=== PATIENT | male | born 1950 | race Caucasian/White ===

== ENCOUNTER 2017-08-05 11:25 | Day surgery (SDC) | payer MEDICARE ==
[2017-08-05] MEDS ORDERED: ROSU1TAB8 PO (11:55)
[2017-08-05] MEDS ORDERED: ECASA81 PO (11:55)
[2017-08-05] MEDS ORDERED: MULTTAB67 PO (11:55)
[2017-08-05] MEDS ORDERED: TEST1INJ3 IM (11:55)
[2017-08-05] MEDS ORDERED: SERO50TA PO (11:55)
[2017-08-05] MEDS ORDERED: REME45TA PO (11:55)
[2017-08-05] MEDS ORDERED: IBUP1TAB7 PO (11:55)
[2017-08-05] MEDS ORDERED: OMEP40CA2 PO (11:55)
[2017-08-05] MEDS ORDERED: ZOLP5TAB3 PO (11:55)
[2017-08-05] MEDS ORDERED: TRAM50TA PO (11:55)
[2017-08-05] MEDS ORDERED: COQ-30CA2 PO (11:55)
[2017-08-05] MEDS ORDERED: NS 1000 ML IV SCH (12:15)
[2017-08-05] MEDS ORDERED: CHLORHEXIDINE GLUCONATE 2 % 1 PACK (2 CLOTHS) TOPICAL SCH (12:15)
[2017-08-05] MEDS ORDERED: POVIDONE IODINE 5% (ANTISEPSIS KIT) 4 APPLICATIONS EACH NARE SCH (12:15)
[2017-08-05] MEDS ORDERED: MUPIROCIN 2% OINT 1 APPLIC/GM SYR NASAL SCH (12:15)
[2017-08-05] MEDS ORDERED: ceFAZolin 2 GM PREMIX 50 ML IV SCH (12:15)
--- NOTE | 2017-08-05 13:33 | MA ---
cc: ELADIO MEANS MD DATE 08/05/2017 PROCEDURE PERFORMED Loop recorder insertion. PERFORMING PHYSICIAN Dr. Eladio Means INDICATION Tachycardia/syncope. DESCRIPTION OF PROCEDURE Informed consent was obtained. The patient was brought to the DOC unit in the postabsorptive state. Using the standard sterile technique, a [employer] LINQ loop recorder was inserted subcutaneously to left chest. The patient tolerated procedure well without any apparent complications. Tachybrady pause and atrial fibrillation detection was enabled. Initial R-wave was 0.25 mV. The serial number was [id number]. MD CARLOS Gaitan/JORGE /12:47 PM /1:19 PM
== END 2017-08-05 14:10 | disposition home or self-care (01) ==
LOC: HDOC 11:25 → HDIC 11:26 → HDOC 14:10
PROVIDERS: ATTEND Nuclear Medicine Nuclear Cardiology
DX: R55 Syncope and collapse (principal)
CPT/HCPCS: 33282; 99152; C1764; J0690; J7030

== ENCOUNTER 2017-11-09 15:54 | Inpatient (IN) | payer MEDICARE ==
[~2017-11-09] VITALS: Ht 177.8 cm; Wt 76.1 kg
[~2017-11-09 15:54] MED LIST: COQ-30CA2 PO; ECASA81 PO; IBUP1TAB7 PO; MULTTAB67 PO; OMEP40CA2 PO; REME45TA PO; ROSU1TAB8 PO; SERO50TA PO; TEST1INJ3 IM; TRAM50TA PO; ZOLP5TAB3 PO
[2017-11-09 16:00] VITALS: BP 161/89; PULSE 61; RESP 16; TEMP 97.6; O2SAT 100
[2017-11-09 16:12] VITALS: BP_SYST 146; BP_SYST 168; BP_DIAS 100; BP_DIAS 89; PULSE 65; RESP 19; O2SAT 100; O2SAT 99
[2017-11-09] MEDS ORDERED: SODIUM CHLORIDE 0.9% FLUSH 10 ML FLUSH IVF PRN (16:15)
[2017-11-09] MEDS ORDERED: XANA1TAB2 PO (16:20)
[2017-11-09] MEDS ORDERED: OXYC-395 PO (16:20)
--- NOTE | 2017-11-09 16:43 | RADRPT ---
EXAM DATE/TIME: 11/09/2017 16:34 [place] COMPARISON: No previous studies available for comparison. INDICATIONS : Cardiac evaluation. Patient sent to the ER by his primary doctor due to activity on his [employer]. MEDICAL HISTORY : Hypertension. Hypercholesterolemia. SURGICAL HISTORY : Hysterectomy. Appendectomy. ENCOUNTER: Initial ACUITY: 1 day PAIN SCORE: 0/10 LOCATION: Bilateral chest FINDINGS: PA and lateral views of the chest demonstrate the lungs to be symmetrically aerated without evidence of mass, infiltrate or effusion. The cardiomediastinal contours are unremarkable. Osseous structure s are intact. CONCLUSION: No acute disease. Onur Damon MD FACR on November 09, 2017 at 16:40 Board Certified Radiologist. This report was verified electronically.
[2017-11-09 16:55] LABS: AUTOMATED NEUTROPHIL # 4.5 TH/MM3 (1.8-7.7); BASOPHIL # 0.1 TH/MM3 (0-0.2); BASOPHIL % 0.8 % (0.0-2.0); EOSINOPHIL # 0.5 TH/MM3 (0-0.4); EOSINOPHIL % 5.7 % (0.0-4.0); HEMATOCRIT 47.2 % (39.0-51.0); HEMOGLOBIN 16.1 GM/DL (13.0-17.0); LYMPH % 33.8 % (9.0-44.0); LYMPHOCYTE # 3.1 TH/MM3 (1.0-4.8); MEAN CELL VOLUME 94.9 FL (80.0-100.0); MEAN CORPUSCULAR HEMOGLOBIN 32.5 PG (27.0-34.0); MEAN CORPUSCULAR HGB CONC 34.2 % (32.0-36.0); MEAN PLATELET VOLUME 10.1 FL (7.0-11.0); MONO % 9.7 % (0.0-8.0); MONOCYTE # 0.9 TH/MM3 (0-0.9); PLATELET COUNT 148 TH/MM3 (150-450); RED BLOOD COUNT 4.97 MIL/MM3 (4.50-5.90); RED CELL DISTRIBUTION WIDTH 13.4 % (11.6-17.2)
--- NOTE | 2017-11-09 16:58 | PD ---
HPI Chief Complaint: Cardiac Complaint Time Seen by Provider: 16:09 Travel History International Travel<30 days: No Contact w/Intl Traveler<30days: No Traveled to known affect area: No History of Present Illness HPI Patient is a 67-year-old male presenting to the emergency department for cardiac evaluation. Patient has an implanted loop recorder for the last 2 months. On Tuesday at 3:30 PM he had an episode of V. tach. Patient was away on vacation and event was not noticed until he returned to town. Patient denied any issues regarding chest pain, shortness of breath, palpitations on Tuesday when the event happened. He has had the loop recorder secondary to 2 episodes of shortness of breath and near syncope while riding his bike. Patient rides 5 days a week, at approximately 26 miles an hour with a group of cyclists. He has had no chest pain or shortness of breath, he denies abdominal pain, diaphoresis, headache, visual changes. Patient states he takes a baby aspirin daily, Crestor. Symptom onset is unknown, patient denies any pain at this time. PFSH Past Medical History Heart Rhythm Problems: Yes High Cholesterol: Yes GERD: Yes Hypertension: Yes Past Surgical History Appendectomy: Yes Social History Alcohol Use: Yes (occassional ) Tobacco Use: No Substance Use: No Allergies-Medications (Allergen,Severity, Reaction): Coded Allergies: metoclopramide (Verified Allergy, Severe, 11/09/17) Reported Meds & Prescriptions Reported Meds & Active Scripts Active Reported Oxycodone (Oxycodone HCl) 10 Mg Tab 10 Mg PO DAILY PRN Xanax (Alprazolam) 1 Mg Tab 1 Mg PO DAILY PRN Multiple Vitamin 1 Tab 1 Tab PO DAILY Coq-10 (Coenzyme Q10 (Ubidecarenone)) 30 Mg Cap Unknown Dose PO DAILY Testosterone Cypionate Inj (Testosterone Cypionate) 100 Mg/Ml Inj 100 Mg IM Q14D Zolpidem (Zolpidem Tartrate) 5 Mg Tab 10 Mg PO HS PRN Tramadol (Tramadol HCl) 50 Mg Tab 50 Mg PO Q4H PRN Seroquel (Quetiapine Fumarate) 50 Mg Tab 100 Mg PO HS Rosuvastatin (Rosuvastatin Calcium) 20 Mg Tab 20 Mg PO DAILY Remeron (Mirtazapine) 45 Mg Tab 45 Mg PO HS Omeprazole 40 Mg Cap 40 Mg PO DAILY Aspirin DR (Aspirin) 81 Mg Tabdr 81 Mg PO DAILY Review of Systems Except as stated in HPI: all other systems reviewed are Neg Physical Exam Narrative GENERAL: Thin, well-developed, alert male. Presenting in no acute distress. SKIN: Warm and dry. HEAD: Atraumatic. Normocephalic. EYES: Pupils equal and round. No scleral icterus. No injection or drainage. ENT: No nasal bleeding or discharge. Mucous membranes pink and moist. NECK: Trachea midline. No JVD. CARDIOVASCULAR: Bradycardic RESPIRATORY: No accessory muscle use. Clear to auscultation. Breath sounds equal bilaterally. GASTROINTESTINAL: Abdomen soft, non-tender, nondistended. Hepatic and splenic margins not palpable. MUSCULOSKELETAL: Extremities without clubbing, cyanosis, or edema. No obvious deformities. NEUROLOGICAL: Awake and alert. No obvious cranial nerve deficits. Motor grossly within normal limits. Five out of 5 muscle strength in the arms and legs. Normal speech. PSYCHIATRIC: Appropriate mood and affect; insight and judgment normal. Data Data Last Documented VS Vital Signs Date Time Temp Pulse Resp B/P (MAP) Pulse Ox O2 Delivery O2 Flow Rate FiO2 11/09/17 16:12 100 Room Air 11/09/17 16:12 (115) 11/09/17 16:12 65 19 11/09/17 16:00 97.6 Orders Orders Electrocardiogram (11/09/17 16:10) B-Type Natriuretic Peptide (11/09/17 16:10) Ckmb (Isoenzyme) Profile (11/09/17 16:10) Complete Blood Count With Diff (11/09/17 16:10) Comprehensive Metabolic Panel (11/09/17 16:10) Magnesium (Mg) (11/09/17 16:10) Prothrombin Time / Inr (Pt) (11/09/17 16:10) Act Partial Throm Time (Ptt) (11/09/17 16:10) Troponin I (11/09/17 16:10) Lipase (11/09/17 16:10) Ecg Monitoring (11/09/17 16:10) Bilateral Bp Monitoring (11/09/17 16:10) Iv Access Insert/Monitor (11/09/17 16:10) Oximetry (11/09/17 16:10) Oxygen Administration (11/09/17 16:10) Sodium Chloride 0.9% Flush (Ns Flush) (11/09/17 16:15) Chest, Pa & Lat (11/09/17 16:10) CKMB (11/09/17 16:22) CKMB% (11/09/17 16:22) Admit Order (Ed Use Only) (11/09/17 18:32) Labs Laboratory Tests Test 11/09/17 16:22 White Blood Count 9.0 TH/MM3 Red Blood Count 4.97 MIL/MM3 Hemoglobin 16.1 GM/DL Hematocrit 47.2 % Mean Corpuscular Volume 94.9 FL Mean Corpuscular Hemoglobin 32.5 PG Mean Corpuscular Hemoglobin Concent 34.2 % Red Cell Distribution Width 13.4 % Platelet Count 148 TH/MM3 Mean Platelet Volume 10.1 FL Neutrophils (%) (Auto) 50.0 % Lymphocytes (%) (Auto) 33.8 % Monocytes (%) (Auto) 9.7 % Eosinophils (%) (Auto) 5.7 % Basophils (%) (Auto) 0.8 % Neutrophils # (Auto) 4.5 TH/MM3 Lymphocytes # (Auto) 3.1 TH/MM3 Monocytes # (Auto) 0.9 TH/MM3 Eosinophils # (Auto) 0.5 TH/MM3 Basophils # (Auto) 0.1 TH/MM3 CBC Comment DIFF FINAL Differential Comment Prothrombin Time 11.1 SEC Prothromb Time International Ratio 1.1 RATIO Activated Partial Thromboplast Time 24.4 SEC Blood Urea Nitrogen 22 MG/DL Creatinine 1.10 MG/DL Random Glucose 75 MG/DL Total Protein 6.8 GM/DL Albumin 3.7 GM/DL Calcium Level 8.6 MG/DL Magnesium Level 1.6 MG/DL Alkaline Phosphatase 47 U/L Aspartate Amino Transf (AST/SGOT) 36 U/L Alanine Aminotransferase (ALT/SGPT) 29 U/L Total Bilirubin 0.5 MG/DL Sodium Level 140 MEQ/L Potassium Level 4.4 MEQ/L Chloride Level 105 MEQ/L Carbon Dioxide Level 27.3 MEQ/L Anion Gap 8 MEQ/L Estimat Glomerular Filtration Rate 67 ML/MIN Total Creatine Kinase 289 U/L Creatine Kinase MB 5.8 NG/ML Troponin I 0.14 NG/ML B-Type Natriuretic Peptide 30 PG/ML Lipase 197 U/L MDM Medical Decision Making Medical Screen Exam Complete: Yes Emergency Medical Condition: Yes Interpretation(s) Vital Signs Date Time Temp Pulse Resp B/P (MAP) Pulse Ox O2 Delivery O2 Flow Rate FiO2 11/09/17 16:12 100 Room Air 11/09/17 16:12 (115) 99 Room Air 11/09/17 16:12 65 19 146/100 (115) 100 Room Air 168/89 (115) 11/09/17 16:09 62 13 99 Room Air 11/09/17 16:00 97.6 61 16 161/89 (113) 100 Differential Diagnosis ACS vs USA vs cardiac arrhythmia versus other Narrative Course Patient is a 59-year-old male that presented emergency department on the advice of his certified athletic trainer after his loop recorder carted an episode of V. tach on Tuesday. Patient presents asymptomatic, he denies any episode of chest pain Tuesday. Apparently patient was engaging in sexual intercourse when the event occurred. Labs and imaging ordered and pending. IV access established, patient was placed on telemetry monitoring continuous pulse oximetry. Initial EKG shows sinus bradycardia with first-degree AV block, this was reviewed by my attending physician. CBC with no acute findings, chemistry with elevated BUN 22. Cardiac enzymes with a positive troponin at 0.14. Chest x-ray shows no acute disease. Dr. Martínez discussed findings with Dr. Peterson who stated to keep patient NPO after midnight, no heparin drip. Dr. Adrian accepted admit. Orders placed. Diagnosis Primary Impression: Cardiac arrhythmia Qualified Codes: I47.2 - Ventricular tachycardia Additional Impression: Elevated troponin level Admitting Information Admitting Physician Requests: Admit Condition: Stable Michaela Cabezas [facility] Nov 09, 2017 16:58
[2017-11-09 17:07] LABS: ALT (GPT) 29 U/L (12-78)
[2017-11-09 17:08] LABS: INTERNATIONAL NORMALIZED RATIO 1.1 RATIO; PROTHROMBIN TIME - PATIENT 11.1 SEC (9.8-11.6)
[2017-11-09 17:18] LABS: ALBUMIN 3.7 GM/DL (3.4-5.0); ALKALINE PHOSPHATASE 47 U/L (45-117); AST (GOT) 36 U/L (15-37); BICARBONATE 27.3 MEQ/L (21.0-32.0); BLOOD UREA NITROGEN 22 MG/DL (7-18); CALCIUM 8.6 MG/DL (8.5-10.1); CHLORIDE 105 MEQ/L (98-107); GLOMERULAR FILTRATION RATE 67 ML/MIN (>89); GLUCOSE,RANDOM 75 MG/DL (74-106); MAGNESIUM 1.6 MG/DL (1.5-2.5); SODIUM (NA) 140 MEQ/L (136-145); TOTAL BILIRUBIN ADULT 0.5 MG/DL (0.2-1.0); TOTAL PROTEIN 6.8 GM/DL (6.4-8.2); TROPONIN I 0.14 NG/ML (0.02-0.05)
--- NOTE | 2017-11-09 18:33 | PD ---
Data Data Last Documented VS Vital Signs Date Time Temp Pulse Resp B/P (MAP) Pulse Ox O2 Delivery O2 Flow Rate FiO2 11/09/17 16:12 100 Room Air 11/09/17 16:12 (115) 11/09/17 16:12 65 19 11/09/17 16:00 97.6 Orders Orders Electrocardiogram (11/09/17 16:10) B-Type Natriuretic Peptide (11/09/17 16:10) Ckmb (Isoenzyme) Profile (11/09/17 16:10) Complete Blood Count With Diff (11/09/17 16:10) Comprehensive Metabolic Panel (11/09/17 16:10) Magnesium (Mg) (11/09/17 16:10) Prothrombin Time / Inr (Pt) (11/09/17 16:10) Act Partial Throm Time (Ptt) (11/09/17 16:10) Troponin I (11/09/17 16:10) Lipase (11/09/17 16:10) Ecg Monitoring (11/09/17 16:10) Bilateral Bp Monitoring (11/09/17 16:10) Iv Access Insert/Monitor (11/09/17 16:10) Oximetry (11/09/17 16:10) Oxygen Administration (11/09/17 16:10) Sodium Chloride 0.9% Flush (Ns Flush) (11/09/17 16:15) Chest, Pa & Lat (11/09/17 16:10) CKMB (11/09/17 16:22) CKMB% (11/09/17 16:22) Labs Laboratory Tests Test 11/09/17 16:22 White Blood Count 9.0 TH/MM3 Red Blood Count 4.97 MIL/MM3 Hemoglobin 16.1 GM/DL Hematocrit 47.2 % Mean Corpuscular Volume 94.9 FL Mean Corpuscular Hemoglobin 32.5 PG Mean Corpuscular Hemoglobin Concent 34.2 % Red Cell Distribution Width 13.4 % Platelet Count 148 TH/MM3 Mean Platelet Volume 10.1 FL Neutrophils (%) (Auto) 50.0 % Lymphocytes (%) (Auto) 33.8 % Monocytes (%) (Auto) 9.7 % Eosinophils (%) (Auto) 5.7 % Basophils (%) (Auto) 0.8 % Neutrophils # (Auto) 4.5 TH/MM3 Lymphocytes # (Auto) 3.1 TH/MM3 Monocytes # (Auto) 0.9 TH/MM3 Eosinophils # (Auto) 0.5 TH/MM3 Basophils # (Auto) 0.1 TH/MM3 CBC Comment DIFF FINAL Differential Comment Prothrombin Time 11.1 SEC Prothromb Time International Ratio 1.1 RATIO Activated Partial Thromboplast Time 24.4 SEC Blood Urea Nitrogen 22 MG/DL Creatinine 1.10 MG/DL Random Glucose 75 MG/DL Total Protein 6.8 GM/DL Albumin 3.7 GM/DL Calcium Level 8.6 MG/DL Magnesium Level 1.6 MG/DL Alkaline Phosphatase 47 U/L Aspartate Amino Transf (AST/SGOT) 36 U/L Alanine Aminotransferase (ALT/SGPT) 29 U/L Total Bilirubin 0.5 MG/DL Sodium Level 140 MEQ/L Potassium Level 4.4 MEQ/L Chloride Level 105 MEQ/L Carbon Dioxide Level 27.3 MEQ/L Anion Gap 8 MEQ/L Estimat Glomerular Filtration Rate 67 ML/MIN Total Creatine Kinase 289 U/L Creatine Kinase MB 5.8 NG/ML Troponin I 0.14 NG/ML B-Type Natriuretic Peptide 30 PG/ML Lipase 197 U/L MDM Supervised Visit with NILAM: Yes Narrative Course The history, exam, and medical decision-making in the associated mid-level provider note were completed with my assistance. I reviewed and agree with the findings presented. I attest that I had a [id number] encounter with the patient on the same day, and personally performed and documented my assessment and findings in the medical record. *My assessment and Findings: 67-year-old man, here with not really any symptoms, referred in because of VQuyen tach seen on his of event/loop recorder. Looks well. Troponins elevated. EKG is otherwise unremarkable. Will speak with his cardiology team. Admit to medicine. Francisco Martínez MD Nov 09, 2017 18:33
[2017-11-09 19:53] VITALS: BP 136/74; PULSE 18; PULSE 52; RESP 18; O2SAT 94
[2017-11-09] MEDS: SODIUM CHLOR 0.9% 1000 ML INJ 1,000 ML IV SCH (20:25)
[2017-11-09] MEDS ORDERED: NALOXONE HCL 0.4 MG/ML AMP IV PUSH PRN (20:30)
[2017-11-09] MEDS ORDERED: SODIUM CHLORIDE 0.9% FLUSH 10 ML FLUSH IV FLUSH PRN (20:30)
[2017-11-09] MEDS ORDERED: MAGNESIUM HYDROXIDE SUSP 30 ML CUP PO PRN (20:30)
[2017-11-09] MEDS ORDERED: SENNOSIDES 8.6 MG TAB PO PRN (20:30)
[2017-11-09] MEDS ORDERED: ONDANSETRON HCL 4 MG/2 ML VIAL IVP PRN (20:30)
[2017-11-09] MEDS ORDERED: BISACODYL 10 MG SUPP RECTAL PRN (20:30)
[2017-11-09] MEDS ORDERED: LACTULOSE SYRUP 20 GM/30 ML CUP PO PRN (20:30)
[2017-11-09] MEDS ORDERED: ACETAMINOPHEN 325 MG TAB PO PRN (20:30)
--- NOTE | 2017-11-09 20:38 | HHI.HP ---
HPI Service [facility] Primary Care Physician Luis F Cabrera M.D. Admission Diagnosis Elevated troponin, cardiac arrhythmia Diagnoses: Travel History International Travel<30 Days: No Contact w/Intl Traveler <30 Da: No Traveled to Known Affected Are: No History of Present Illness 67-year-old male with a past medical history significant for chronic back pain, depression, hyperlipidemia and GERD presents to the emergency department at the recommendation of his photographic developer and printer. Patient has had a loop recorder for approximately 3 months secondary to intermittent dizzy spells. On Tuesday the loop recorder reported ventricular tachycardia in the patient's photographic developer and printer, Dr. Mora, sent the patient for further evaluation. The patient reports sexual activity during the time that the loop recorder registered V. tach. He denies any chest pain/shortness of breath. No abdominal pain. No nausea/vomiting/diarrhea. No recent dizzy spells. No fatigue. No fevers/chills. Review of Systems Except as stated in HPI: all other systems reviewed are Neg Past Family Social History Past Medical History Chronic back pain GERD Depression Hyperlipidemia Insomnia Past Surgical History L4-5 fusion L5-S1 fusion Reported Medications Reported Meds & Active Scripts Active Reported Oxycodone (Oxycodone HCl) 10 Mg Tab 10 Mg PO DAILY PRN Xanax (Alprazolam) 1 Mg Tab 1 Mg PO DAILY PRN Multiple Vitamin 1 Tab 1 Tab PO DAILY Coq-10 (Coenzyme Q10 (Ubidecarenone)) 30 Mg Cap Unknown Dose PO DAILY Testosterone Cypionate Inj (Testosterone Cypionate) 100 Mg/Ml Inj 100 Mg IM Q14D Zolpidem (Zolpidem Tartrate) 5 Mg Tab 10 Mg PO HS PRN Tramadol (Tramadol HCl) 50 Mg Tab 50 Mg PO Q4H PRN Seroquel (Quetiapine Fumarate) 50 Mg Tab 100 Mg PO HS Rosuvastatin (Rosuvastatin Calcium) 20 Mg Tab 20 Mg PO DAILY Remeron (Mirtazapine) 45 Mg Tab 45 Mg PO HS Omeprazole 40 Mg Cap 40 Mg PO DAILY Aspirin DR (Aspirin) 81 Mg Tabdr 81 Mg PO DAILY Allergies: Coded Allergies: metoclopramide (Verified Allergy, Severe, 11/09/17) Family History Father with CVA Social History Rare alcohol. Denies tobacco and illicit drugs. Physical Exam Vital Signs Vital Signs Date Time Temp Pulse Resp B/P (MAP) Pulse Ox O2 Delivery O2 Flow Rate FiO2 11/09/17 19:53 52 18 136/74 (94) 94 Room Air 11/09/17 16:12 100 Room Air 11/09/17 16:12 (115) 99 Room Air 11/09/17 16:12 65 19 146/100 (115) 100 Room Air 168/89 (115) 11/09/17 16:09 62 13 99 Room Air 11/09/17 16:00 97.6 61 16 161/89 (113) 100 Physical Exam GENERAL: male sitting up in bed SKIN: No rashes, ecchymoses or lesions. Cool and dry. HEAD: Atraumatic. Normocephalic. No temporal or scalp tenderness. EYES: Pupils equal round and reactive. Extraocular motions intact. No scleral icterus. No injection or drainage. ENT: Nose without bleeding, purulent drainage or septal hematoma. Throat without erythema, tonsillar hypertrophy or exudate. Uvula midline. Airway patent. NECK: Trachea midline. No JVD or lymphadenopathy. Supple, nontender, no meningeal signs. CARDIOVASCULAR: Regular rate and rhythm without murmurs, gallops, or rubs. RESPIRATORY: Clear to auscultation. Breath sounds equal bilaterally. No wheezes , rales, or rhonchi. GASTROINTESTINAL: Abdomen soft, non-tender, nondistended. No hepato-splenomegaly , or palpable masses. No guarding. MUSCULOSKELETAL: Extremities without clubbing, cyanosis, or edema. No joint tenderness, effusion, or edema noted. No calf tenderness. NEUROLOGICAL: Awake and alert. Cranial nerves II through XII intact. Motor and sensory grossly within normal limits. Normal speech. Laboratory Laboratory Tests Test 11/09/17 16:22 White Blood Count 9.0 Red Blood Count 4.97 Hemoglobin 16.1 Hematocrit 47.2 Mean Corpuscular Volume 94.9 Mean Corpuscular Hemoglobin 32.5 Mean Corpuscular Hemoglobin Concent 34.2 Red Cell Distribution Width 13.4 Platelet Count 148 Mean Platelet Volume 10.1 Neutrophils (%) (Auto) 50.0 Lymphocytes (%) (Auto) 33.8 Monocytes (%) (Auto) 9.7 Eosinophils (%) (Auto) 5.7 Basophils (%) (Auto) 0.8 Neutrophils # (Auto) 4.5 Lymphocytes # (Auto) 3.1 Monocytes # (Auto) 0.9 Eosinophils # (Auto) 0.5 Basophils # (Auto) 0.1 CBC Comment DIFF FINAL Differential Comment Prothrombin Time 11.1 Prothromb Time International Ratio 1.1 Activated Partial Thromboplast Time 24.4 Blood Urea Nitrogen 22 Creatinine 1.10 Random Glucose 75 Total Protein 6.8 Albumin 3.7 Calcium Level 8.6 Magnesium Level 1.6 Alkaline Phosphatase 47 Aspartate Amino Transf (AST/SGOT) 36 Alanine Aminotransferase (ALT/SGPT) 29 Total Bilirubin 0.5 Sodium Level 140 Potassium Level 4.4 Chloride Level 105 Carbon Dioxide Level 27.3 Anion Gap 8 Estimat Glomerular Filtration Rate 67 Total Creatine Kinase 289 Creatine Kinase MB 5.8 Troponin I 0.14 B-Type Natriuretic Peptide 30 Lipase 197 Result Diagram: 11/09/17 1622 11/09/17 1622 Caprini VTE Risk Assessment Caprini VTE Risk Assessment: Mod/High Risk (score >= 2) Caprini Risk Assessment Model Point Value = 1 Point Value = 2 Point Value = 3 Point Value = 5 Age 41-60 Minor surgery BMI > 25 kg/m2 Swollen legs Varicose veins or History of unexplained or recurrent spontaneous Oral contraceptives or hormone replacement Sepsis (< 1 month) Serious lung disease, including pneumonia (< 1 month) Abnormal pulmonary function Acute myocardial infarction Congestive heart failure (< 1 month) History of inflammatory bowel disease Medical patient at bed rest Age 61-74 Arthroscopic surgery Major open surgery (> 45 min) Laparoscopic surgery (> 45 min) Malignancy Confined to bed (> 72 hours) Immobilizing plaster cast Central venous access Age >= 75 History of VTE Family history of VTE Factor V Leiden Prothrombin [id number] Lupus anticoagulant Anticardiolipin antibodies Elevated serum homocysteine Heparin-induced thrombocytopenia Other congenital or acquired thrombophilia Stroke (< 1 month) Elective arthroplasty Hip, pelvis, or leg fracture Acute spinal cord injury (< 1 month) Prophylaxis Regimen Total Risk Factor Score Risk Level Prophylaxis Regimen 0-1 Low Early ambulation 2 Moderate Order ONE of the following: *Sequential Compression Device (SCD) *Heparin 5000 units SQ BID 3-4 Higher Order ONE of the following medications: *Heparin 5000 units SQ TID *Enoxaparin/Lovenox 40 mg SQ daily (WT < 150 kg, CrCl > 30 mL/min) *Enoxaparin/Lovenox 30 mg SQ daily (WT < 150 kg, CrCl > 10-29 mL/min) *Enoxaparin/Lovenox 30 mg SQ BID (WT < 150 kg, CrCl > 30 mL/min) AND/OR *Sequential Compression Device (SCD) 5 or more Highest Order ONE of the following medications: *Heparin 5000 units SQ TID (Preferred with Epidurals) *Enoxaparin/Lovenox 40 mg SQ daily (WT < 150 kg, CrCl > 30 mL/min) *Enoxaparin/Lovenox 30 mg SQ daily (WT < 150 kg, CrCl > 10-29 mL/min) *Enoxaparin/Lovenox 30 mg SQ BID (WT < 150 kg, CrCl > 30 mL/min) AND *Sequential Compression Device (SCD) Assessment and Plan Assessment and Plan Assessment/plan: 1. Ventricular tachycardia Patient with episode of ventricular tachycardia on loop recorder Cardiology consulted, appreciate assistance Plan for possible intervention tomorrow Monitor on telemetry N.p.o. 2. Elevated troponin EKG significant for normal sinus rhythm with first-degree AV block, personally reviewed Initial troponin 0.14 ACS rule out pending; serial troponins/EKGs 3. Chronic low back pain Continue home oxycodone as needed 4. GERD/depression/hyperlipidemia Continue home medications FEN NPO NS at 100 cc/hr Electrolytes: monitor and replete prn Holding pharmacologic anticoagulation for possible intervention tomorrow Physician Certification 2 Midnight Certification Type: Admission for Inpatient Services Order for Inpatient Services The services are ordered in accordance with Medicare regulations or non- Medicare payer requirements, as applicable. In the case of services not specified as inpatient-only, they are appropriately provided as inpatient services in accordance with the 2-midnight benchmark. Estimated LOS (days): 2 2 days is the estimated time the patient will need to remain in the hospital, assuming treatment plan goals are met and no additional complications. Post-Hospital Plan: Not yet determined Asmita Longoria MD Nov 09, 2017 20:38
[2017-11-09] MEDS: DOCUSATE SODIUM 50 MG/SENNA 8.6 MG TAB PO SCH (22:09)
[2017-11-09] MEDS: SODIUM CHLORIDE 0.9% FLUSH 10 ML FLUSH IV FLUSH SCH (22:09)
[2017-11-09] MEDS: QUEtiapine FUMARATE 100 MG TAB PO SCH ×2 (22:09→23:43)
[2017-11-09] MEDS: MIRTAZAPINE 15 MG TAB PO SCH ×2 (22:10→23:43)
[2017-11-09 23:22] LABS: TROPONIN I 0.15 NG/ML (0.02-0.05)
[2017-11-09] MEDS: ZOLPIDEM TARTRATE 10 MG TAB PO PRN (23:43)
[2017-11-10] VITALS (14 sets, daily range): BP systolic 92–178; BP diastolic 63–92; PULSE 50–86; RESP 12–20; TEMP 97.6–98.9; O2SAT 95–100
[2017-11-10 05:53] LABS: AUTOMATED NEUTROPHIL # 3.4 TH/MM3 (1.8-7.7); BASOPHIL # 0.1 TH/MM3 (0-0.2); BASOPHIL % 0.8 % (0.0-2.0); EOSINOPHIL # 0.5 TH/MM3 (0-0.4); EOSINOPHIL % 7.3 % (0.0-4.0); HEMATOCRIT 45.1 % (39.0-51.0); HEMOGLOBIN 15.4 GM/DL (13.0-17.0); LYMPH % 32.5 % (9.0-44.0); LYMPHOCYTE # 2.2 TH/MM3 (1.0-4.8); MEAN CELL VOLUME 94.1 FL (80.0-100.0); MEAN CORPUSCULAR HEMOGLOBIN 32.1 PG (27.0-34.0); MEAN CORPUSCULAR HGB CONC 34.1 % (32.0-36.0); MEAN PLATELET VOLUME 9.6 FL (7.0-11.0); MONO % 10.2 % (0.0-8.0); MONOCYTE # 0.7 TH/MM3 (0-0.9); NEUT % 49.2 % (16.0-70.0); PLATELET COUNT 145 TH/MM3 (150-450); RED BLOOD COUNT 4.79 MIL/MM3 (4.50-5.90); RED CELL DISTRIBUTION WIDTH 13.2 % (11.6-17.2); WHITE BLOOD COUNT 6.9 TH/MM3 (4.0-11.0)
[2017-11-10 06:17] LABS: BICARBONATE 30.8 MEQ/L (21.0-32.0); CALCIUM 8.3 MG/DL (8.5-10.1); CREATININE 1.11 MG/DL (0.60-1.30)
[2017-11-10] MEDS: SODIUM CHLOR 0.9% 1000 ML INJ 1,000 ML IV SCH ×2 (06:42→17:30)
[2017-11-10] MEDS: DOCUSATE SODIUM 50 MG/SENNA 8.6 MG TAB PO SCH ×2 (08:50→23:45)
[2017-11-10] MEDS: ATORVASTATIN 40 MG TAB PO SCH (08:55)
[2017-11-10] MEDS: PANTOPRAZOLE SOD 40 MG DELAYED RELEASE TAB PO SCH (08:55)
[2017-11-10] MEDS: SODIUM CHLORIDE 0.9% FLUSH 10 ML FLUSH IV FLUSH SCH ×2 (09:00→21:00)
[2017-11-10] MEDS ORDERED: NS 1000P @30 MLS/HR (KVO) IV SCH (10:45)
[2017-11-10] MEDS ORDERED: VERAPAMIL HCL 5 MG/2 ML VIAL ONE (10:52)
[2017-11-10] MEDS ORDERED: NITROGLYCERIN INJ 5 ML ONE (10:52)
[2017-11-10] MEDS ORDERED: MIDAZOLAM HCL 2 MG/2 ML VIAL ONE (10:52)
[2017-11-10] MEDS ORDERED: HEPARIN SODIUM - IV 10,000 UNITS/10 ML VIAL ONE (10:52)
[2017-11-10] MEDS ORDERED: LIDOCAINE HCL 1% PF 30 ML VIAL ONE (10:53)
[2017-11-10] MEDS ORDERED: HEPARIN-NS/PF FLUSH BAG 1,000 ML IV FLUSH ONE (10:58)
--- NOTE | 2017-11-10 11:46 | HHI.PR ---
Subjective Remarks Seen after cardiac cath Complaints of headache. Patient in bed appears in nad. No cp, palpitations. sob, n.v.d.c, Denies fever or chills Objective Vitals Vital Signs Date Time Temp Pulse Resp B/P (MAP) Pulse Ox O2 Delivery O2 Flow Rate FiO2 11/10/17 10:14 97.6 62 18 178/92 (120) 98 11/10/17 09:16 59 14 159/79 (105) 96 Room Air 11/10/17 08:10 97.8 62 16 144/80 (101) 98 Room Air 11/10/17 05:29 98.3 52 12 123/63 (83) 100 Room Air 11/09/17 19:53 52 18 136/74 (94) 94 Room Air 11/09/17 16:12 100 Room Air 11/09/17 16:12 (115) 99 Room Air 11/09/17 16:12 65 19 146/100 (115) 100 Room Air 168/89 (115) 11/09/17 16:09 62 13 99 Room Air 11/09/17 16:00 97.6 61 16 161/89 (113) 100 Result Diagram: 11/10/17 0513 11/10/17 0513 Imaging Last Impressions Chest X-Ray 11/09/17 1610 Signed Impressions: Service Date/Time: Thursday, November 09, 2017 16:34 - CONCLUSION: No acute disease. Onur Damon MD FACR Objective Remarks GENERAL: male sitting up in bed CARDIOVASCULAR: Regular rate and rhythm without murmurs, gallops, or rubs. RESPIRATORY: Clear to auscultation. Breath sounds equal bilaterally. No wheezes , rales, or rhonchi. GASTROINTESTINAL: Abdomen soft, non-tender, nondistended. No hepato-splenomegaly , or palpable masses. No guarding. MUSCULOSKELETAL: Extremities without clubbing, cyanosis, or edema. No joint tenderness, effusion, or edema noted. No calf tenderness. NEUROLOGICAL: Awake and alert. Cranial nerves II through XII intact. Motor and sensory grossly within normal limits. Normal speech. A/P Assessment and Plan Ventricular tachycardia Patient with episode of ventricular tachycardia on loop recorder Cardiology consulted, appreciate assistance S/p cardiac cath by Dr Linton cardio PLAN FOR EP STUDIES IN AM Monitor on telemetry Elevated troponin EKG significant for normal sinus rhythm with first-degree AV block, personally reviewed Initial troponin 0.14 ACS rule out pending; serial troponins /EKGs S/p cardiac cath by Dr Linton 11/10 Chronic low back pain Continue home oxycodone as needed GERD/depression/hyperlipidemia Continue home medications s/p cardiac cath 11/10 Plan for EP studies in the morning 11/11 by Jessi De Jesus MD Nov 10, 2017 11:46
--- NOTE | 2017-11-10 11:51 | CATHPROC ---
[employer] HIS Report Study Information Study Number Admission Scheduled Start Study Start [id number] Nov 09 2017 6:34PM 11/10/2017 Nov 10 2017 10:46AM [place] Service Cardiac Catheterization Admit Source Facility Department Emergency department [facility] - Site Leader Physician and Clinical Staff Initial Edwin Fitch Prism Measurer Asmita Varghese,RADU Prism Measurer Darek Caicedo,RADU Recorder Lora Almaraz,RT(R) Recorder Aster Garcia ,RT(R) Scrub Jossue Hansen,RT(R) Procedures Performed Procedure Location (Site) Vessel Name Coronary Angiograms LCA Left Coronary Coronary Angiograms RCA Right Coronary L Heart Cath Equipment Time Traffic Technician Description Size Mfg Part Number Used/Scraped TRANSDUCER, TRUWAVE [id number] 10:50 FINNEGAN LUNA * Used W/STOCKCOCK *[id number] *[id number] *[id number] 10:50 [employer] PACK, CCL CUSTOM * Used *[id number] 10:50 [employer] SUPPORT, ARTERIAL ADULT 59480 *[id number] Used BAND, RADIAL COMPRESSION TR [id number] 11:28 [employer] MEDICAL 24CM Used SHORT 24 *[id number] 10:50 [employer], [employer] WIRE, EXCHANGE 260CM 3MMJ 260CM Used *[id number] 10:50 [employer] MANIFOLD, 4 PORT * Used *[id number] 10:50 [employer] OMNIPAQUE, 350 MG, 150ML 150ML [id number] Used [id number] 10:50 [employer] BL[employer],WARM AIR CCL * Used *[id number] SHEATH, FR6 TRANSRADIAL RM*[id number] 10:50 [employer] FR 6 Used SLENDER 10CM *[id number] History: Current Medications Medication Dosage/Unit Route Frequency Last Date/Time Taken ASA Statins (any) LIPITOR History: Allergies Allergy Reaction metoclopramide History: Risk Factors Family History of Hypertension Dyslipidemia Previous NV Previous Heart Failure Premature CAD No Yes No No No Prior Valve Prior PCI Prior CABG Surgery No No No Cerebrovascular Peripheral Artery Chronic Lung On Dialysis Diabetes Disease Disease Disease No No No No No History: Stress Tests Stress or Imaging Studies Performed Yes Standard Exercise Stress Test No Stress Echo No Stress Test SPECT Stress Test SPECT Result Yes Indeterminant Stress Test CMR No Cardiac CTA Coronary Calcium Score No No History: Other Current Smoker Method Quit Packs a Day Years Used Pack Years No Cigarettes 38 Years Ago 1 14 14 Labs Hgb (g/dl) Hct (%) RBC (MIL/MM3) WBC (l/cumm) Platelets (thousands) 11.60-17.00 35.00-51.00 4.00-5.90 4.00-11.00 150.00-450.00 15.4 45.1 4.7 6.9 145 Glucose (mg/dl) BUN (mg/dl) Creatinine (mg/dl) BUN:Creatinine (1:x) 74.00-106.00 7.00-18.00 0.50-1.30 10.00-20.00 91 20 1.1 18.2 Na (meq/l) K (meq/l) Cl (meq/l) CO2 (mmol/L) Ca (mg/dl) 136.00-145.00 3.50-5.10 98.00-107.00 21.00-32.00 8.50-10.10 141 4 104 30.8 8.3 PT (sec) PTT (sec) INR (PTT:PT) 9.80-11.60 24.30-30.10 0.90-1.10 11.1 24.4 1.1 Troponin I (ng/ml) CPK (u/l) CPK-MB (ng/ML) 0.02-0.05 26.00-308.00 0.50-3.60 0.15 191 Not Drawn Medication Medication Total Dose (Bolus/Oral) Medication Total Dosage/Unit 1% XYLOCAINE 10 mL FENTANYL 50 mcg RADIAL COCKTAIL 5 mL (Bolus) VERSED 1 mg Medications (Bolus/Oral) Medication Time Given Dosage/Unit Administered By Reason VERSED 11/10/2017 11:12:42 AM 0.5 mg Asmita Varghese 0.5 mg VERSED given in lab by Asmita Varghese, RN in Left Antecubital via Peripheral IV. Ordered by Edwin Wild 1% XYLOCAINE 11/10/2017 11:13:46 AM 10 mL Edwin Woods 10 mL 1% XYLOCAINE given in lab by Edwin Woods in Right Radial via Subcutaneous. Ordered by Edwin Wild FENTANYL 11/10/2017 11:13:53 AM 25 mcg Adamy, Asmita 25 mcg FENTANYL given in lab by Asmita Varghese RN in Left Antecubital via Peripheral IV. Ordered by Edwin Woods Ntg 200mcg Verapamil 2.5mg Heparin RADIAL COCKTAIL 11/10/2017 11:15:45 AM 5 mL (Bolus) Edwin Woods 3000U 5 mL (Bolus) RADIAL COCKTAIL given in lab by Asmita Varghese RN via Radial. Using [Solution Name]. O rdered by Edwin Woods Reason: Ntg 200mcg Verapamil 2.5mg Heparin 3200U. VERSED 11/10/2017 11:16:31 AM 0.5 mg Asmita Varghese 0.5 mg VERSED given in lab by Asmita Varghese RN in Left Antecubital via Peripheral IV. Ordered by Edwin Wild FENTANYL 11/10/2017 11:17:36 AM 25 mcg Asmita Varghese 25 mcg FENTANYL given in lab by Asmita Varghese RN in Left Antecubital via Peripheral IV. Ordered by Edwin Woods Medication (Drip) Medication Time Given Dosage/Unit Concentration/Unit Diluent (ml) Solution IV Solutions 11/10/2017 10:58:00 AM 0 mL (IV) 500 NaCl .9 Patient arrived on IV Solutions in Left Antecubital via Peripheral IV. Pump/Drip Flow = 20 ml/hr usin g NaCl .9. Initial Case Assessment Cardiovascular HR Rhythm Chest Pain 64 reg 0 Edema Present Skin color Skin None Normal Warm Circulatory - Right Pulses Dorsalis Pedis Femoral Radial 2 2 2 Scale (0,1,2,3,4,d) Scale (0,1,2,3,4,d) Circulatory - Lower Extremities Color Lower Right Normal Neurological State Oriented to time-place- Alert Moves all extremities person Respiration - General Respiration Rate SpO2 (%) (B/min) 12 99 Final Case Assessment Cardiovascular HR Rhythm Chest Pain 64 reg 0 Edema Present Skin color Skin None Normal Warm Circulatory - Right Pulses Dorsalis Pedis Femoral Radial 2 2 2 Scale (0,1,2,3,4,d) Scale (0,1,2,3,4,d) Circulatory - Lower Extremities Color Lower Right Normal Neurological State Oriented to time-place- Alert Moves all extremities person Respiration - General Respiration Rate SpO2 (%) (B/min) 12 99 Chronological Log Time Study Chronological Log 10:45:14 Patient arrived via Bed. 10:46:20 Patient Name, D.O.B, / Armband Verified By R.N. 10:46:24 Consent signed by the physician and the patient and verified by the Site Leader staff. 10:46:30 Pre-op and post- op instructions given; patient acknowledges understanding of instructions. 10:47:36 Verbal Stimulation=2 Physical Stimulation=2 Airway=2 Respiration=2 TOTAL=8. (0=absent, 1=li mited, 2=present) 10:54:57 Reference ECG taken 10:56:58 Allens test performed on the right radial and ulnar artery with a positive result by Ivan Schafer 10:57:26 Patient has been NPO for More than 6Hrs. 10:57:28 Skin Breakdown-none 10:57:52 A # 20 IV was noted in the Antecubital (left). Grade = 0 10:58:00 Patient arrived on IV Solutions in Left Antecubital via Peripheral IV. Pump/Drip Flow = 20 ml/hr using NaCl .9. 10:58:16 History and physical on the chart or being dictated. Assessment: Initial Case, HR=64 BPM, Rhythm=reg, Chest Pain=0, Edema=None, Color=Normal, Skin = Warm Right Pulses: Luis Felipe Ped=2, Femoral=2, Radial=2 10:58:17 Lower Right Extremities: Color=Normal Neurological: State=Alert, Ox3, EDOUARD Respiration: Resp=12 B/min, SpO2=99 % Vitals capture started with the following parameters, Patient=Adult, Interval=5 min, Initial Pr rmhgrt=356 mmHg, 10:58:35 Deflation Rate=5 mmHg, Cuff placed on left Arm 10:58:58 Bilateral groins prepped with 2% chlorhexidine, and draped after a 3 minute waiting time. 10:59:13 MD paged 10:59:17 HR=62 bpm, EWJG=606/94 mmhg, SpO2=97.0 %, Pain=0, Edgar=10, Giles=2 11:04:25 HR=62 bpm, VKUT=309/74 mmhg, SpO2=98.0 %, Pain=0, Edgar=10, Giles=2 11:05:59 Pressure channel 1 zeroed. 11:06:14 pads placed on patient due to his vtach event on loop recorder 11:07:27 MD arrived. 11:09:19 HR=61 bpm, IDXV=914/93 mmhg, SpO2=98.0 %, Pain=0, Edgar=10, Giles=2 Time Out. Correct patient, correct procedure, correct physician, power injector not loaded with contrast with surgical 11:12:05 team present. Time Out Concurred by MD and individual staff in procedure. 11:12:28 Case Start 0.5 mg VERSED given in lab by Asmita Varghese, RADU in Left Antecubital via Peripheral IV. Ordere d by Edwin Woods 11:12:42 G. 10 mL 1% XYLOCAINE given in lab by Edwin Woods in Right Radial via Subcutaneous. Ordere d by Chuck, 11:13:46 Edwin Alvarenga 25 mcg FENTANYL given in lab by Asmita Varghese, RADU in Left Antecubital via Peripheral IV. Orde red by Chuck, 11:13:53 Edwin Alvarenga 11:14:14 Access site was Right Radial Artery. A SHEATH, FR6 TRANSRADIAL SLENDER 10CM FR 6 was advanced into the Radial (right) using the Perc utaneous 11:14:26 technique. 11:15:06 HR=61 bpm, LWYT=986/94 mmhg, SpO2=97.0 %, Pain=0, Edgar=10, Giles=2 5 mL (Bolus) RADIAL COCKTAIL given in lab by Asmita Varghese, RADU via Radial. Using [Solution Na me]. Ordered by 11:15:45 Edwin Woods Reason: Ntg 200mcg Verapamil 2.5mg Heparin 3200U. 0.5 mg VERSED given in lab by Asmita Varghese, RADU in Left Antecubital via Peripheral IV. Ordere d by Edwin Woods 11:16:31 G. A JR 4.0 INFINITI CATHETER FR 5 was advanced over a wire. OMNIPAQUE, 350 MG, 150ML 150ML was us ed for 11:17:09 injections. 25 mcg FENTANYL given in lab by Asmita Varghese, RADU in Left Antecubital via Peripheral IV. Orde red by Chuck, 11:17:36 Edwin Alvarenga Recorded Pressure: LV, HR=64, Condition=Condition 1 11:19:18 (Left Ventricle) LV 157/-3/8 11:19:20 HR=64 bpm, LXXS=327/96 mmhg, SpO2=94.0 %, Pain=0, Edgar=10, Giles=2 Recorded Pressure: LV, Ao, HR=64, Condition=Condition 1 11:19:31 (Left Ventricle) LV 160/-5/3, (Aorta) Ao 153/82/112 11:20:24 The RCA was injected and visualized at various angles. OMNIPAQUE, 350 MG, 150ML 150ML used . After removing the current catheter a JL 3.5 INFINITI CATHETER FR 5 was advanced over a WIRE, E XCHANGE 260CM 11:21:11 3MMJ 260CM. 11:23:54 The LCA was injected and visualized at various angles. OMNIPAQUE, 350 MG, 150ML 150ML used . 11:25:12 HR=60 bpm, QTOR=781/95 mmhg, SpO2=95.0 %, Resp=16 B/min, Pain=0, Edgar=10, Giles=2 11:26:47 Catheter was removed 11:29:28 HR=56 bpm, ZNAX=887/100 mmhg, SpO2=97.0 %, Resp=20 B/min, Pain=0, Edgar=10, Giles=2 11:34:16 Case End Assessment: Final Case, HR=64 BPM, Rhythm=reg, Chest Pain=0, Edema=None, Color=Normal, Skin = W arm Right Pulses: Luis Felipe Ped=2, Femoral=2, Radial=2 11:34:33 Lower Right Extremities: Color=Normal Neurological: State=Alert, Ox3, EDOUARD Respiration: Resp=12 B/min, SpO2=99 % 11:34:38 Catheter(s) removed without difficulty Radial Compression Device Used. 12 mLs of air placed in BAND, RADIAL COMPRESSION TR SHORT 24 24 CM. Affected 11:34:41 hand 97 % O2 saturation. 11:34:42 Case End 11:34:53 No case complications noted. 11:34:56 Cine recording checked. 11:34:57 Bedside Report will be given. 11:35:01 A Left Heart Cath was performed. 11:35:34 HR=56 bpm, HAJJ=292/103 mmhg, SpO2=97.0 %, Pain=0, Edgar=10, Giles=2 11:39:28 HR=56 bpm, PZGN=173/102 mmhg, SpO2=96.0 %, Pain=0, Edgar=10, Giles=2 11:41:48 Patient moved to stretcher End Study - Contrast Media Used In Study Contrast Total Opened (mL) Total Used (mL) Total Wasted (mL) Omnipaque 45 45 0 End Study - Maximum Contrast Load Max Contrast Load (mL) 357.4 End Study - Radiation Exposure Fluoro Time (minutes) 2.3 End Study - Sheaths Sheaths Pulled By Sheath Hold Time (min) Jossue Hansen End Study - Patient Disposition Complications Transferred To Interventional Outcome No Telemetry Bed No attempt made
[2017-11-10] MEDS ORDERED: MISC INFORMATION XX ONE (12:00)
[2017-11-10] MEDS ORDERED: IOHEXOL 350 MG/ML 50 ML BTL (for Cath Lab) OTHER ONE (13:13)
--- NOTE | 2017-11-10 16:13 | EKG ---
Date Performed: 11/09/2017 Time Performed: 22:29:01 PTAGE: 67 years EKG: SINUS BRADYCARDIA WITH FIRST DEGREE AV BLOCK MARKED LEFT AXIS DEVIATION NONSPECIFIC ST [place] Since previous tracing, no significant change noted ABNORMAL ECG PREVIOUS TRACING : 11/09/2017 16.22 DOCTOR: Eladio Means Interpretating Date/Time 11/10/2017 16:13:04
--- NOTE | 2017-11-10 16:13 | EKG ---
Date Performed: 11/09/2017 Time Performed: 16:22:53 PTAGE: 67 years EKG: SINUS BRADYCARDIA WITH FIRST DEGREE AV BLOCK MARKED LEFT AXIS DEVIATION Nonspecific ST-T wa ve changes. ABNORMAL ECG NO PREVIOUS TRACING DOCTOR: Eladio Means Interpretating Date/Time 11/10/2017 16:12:29
--- NOTE | 2017-11-10 16:15 | EKG ---
Date Performed: 11/10/2017 Time Performed: 05:44:37 PTAGE: 67 years EKG: SINUS BRADYCARDIA WITH FIRST DEGREE AV BLOCK MARKED LEFT AXIS DEVIATION NONSPECIFIC ST [place]. Since previous tracing, no significant change noted ABNORMAL ECG PREVIOUS TRACING : 11/09/2017 22.29.01 DOCTOR: Eladio Means Interpretating Date/Time 11/10/2017 16:13:50
[2017-11-10] MEDS ORDERED: ACETAMINOPHEN 500 MG CPLT PO PRN (19:45)
--- NOTE | 2017-11-10 20:28 | MB ---
cc: Edwin Woods Vincent G DO DATE: 11/10/2017 REASON FOR CONSULTATION: Nonsustained ventricular tachycardia, elevated troponin. HISTORY OF PRESENT ILLNESS: Robles Vu is a pleasant 67-year-old male who sees my partner, Dr. Means, in the office and presented at the request of Dr. Means due to nonsustained ventricular tachycardia noted on his loop recorder. He states that over the weekend he and his were in [place] and did not have the loop recorder monitor with him. Upon arriving back into the area, he was called by Dr. Means who told him that he appeared to have nonsustained ventricular tachycardia on his loop recorder from Tuesday. When asked what he was doing at that time, he believes that he and his were having intercourse. He states that he was totally asymptomatic without chest pain, shortness of breath or palpitations. He states that he continues to have chest pain, short of breath and having no palpitations. He rides about 200 miles a week on his bike at high exercise levels and is asymptomatic during these. Loop recorder was originally placed for occasional dizziness. PAST MEDICAL HISTORY: 1. Chronic back pain. 2. Gastroesophageal reflux disease. 3. Depression. 4. Hyperlipidemia. 5. Insomnia. PAST SURGICAL HISTORY: 1. L4-L5 fusion. 2. L5-S1 fusion. ALLERGIES: REGLAN. MEDICATIONS: 1. Crestor 20 mg daily. 2. Aspirin 81 mg daily. 3. Oxycodone 10 mg daily. 4. Tramadol 50 mg every 4 hours as needed for pain. 5. Remeron 45 mg every night. 6. Seroquel 100 mg every night. 7. Xanax 1 mg daily. 8. Ambien 10 mg every night as needed for insomnia. 9. Omeprazole 40 mg daily. 10. Testosterone 100 mg every 2 weeks. FAMILY HISTORY: Denies premature coronary artery disease or sudden cardiac within the family. SOCIAL HISTORY: The patient rarely drinks alcohol. Denies tobacco or drug abuse. REVIEW OF SYSTEMS: Fourteen systems were reviewed including osteopathic. Pertinent positives and negatives above, otherwise negative. PHYSICAL EXAMINATION: VITAL SIGNS: Temperature 97.8, heart rate 62, blood pressure 144/80, respirations 16, pulse oximetry 98% on room air. GENERAL: The patient appears well in no acute distress. Alert, awake and oriented x3. HEENT: Extraocular muscles intact. Mucous membranes moist. NECK: Supple. No JVD at 45 degrees. No carotid bruits heard bilaterally. Carotid upstroke is brisk in nature. HEART: Regular rate and rhythm. Positive first and second heart sounds with no murmurs, gallops or rubs. LUNGS: Clear to auscultation bilaterally. No wheezes, rales or rhonchi. ABDOMEN: Soft, nontender, nondistended. No organomegaly noted. EXTREMITIES: Show no clubbing, cyanosis or edema. Femoral and distal pulses are intact bilaterally. NEUROLOGIC: No focal deficits. SKIN: Warm, dry and intact. OSTEOPATHIC: No kyphoscoliosis, lordosis or paraspinal tender points. LABORATORY DATA: Hemoglobin 15.4, hematocrit 45.1, platelets 145, potassium 4.0, BUN 20, creatinine 1.11. Troponin 0.05. CARDIOLOGY STUDIES: Electrocardiogram (10/10/2017 at 0544) sinus bradycardia with first degree AV block, left axis deviation, nonspecific ST-T wave changes. ASSESSMENT AND PLAN: 1. Nonsustained ventricular tachycardia noted on loop recorder, currently asymptomatic. 2. Minimally elevated troponin which is flat in nature. 3. Occasional lightheadedness from unknown cause. 4. Hyperlipidemia. RECOMMENDATIONS: 1. Mr. Vu presented due to Dr. Means's request as he was found to have nonsustained ventricular tachycardia on his loop recorder. 2. The patient is overall asymptomatic from this, but ischemic cause should be ruled out. 3. He will undergo left heart catheterization. Risks, benefits and alternatives were explained and he consented as such. 4. He is on medications that could prolong the QTC, but overall his QTC is relatively short and most likely this has nothing to do with prolonged QTC. 6. If no significant coronary artery disease is found, he will be recommended for electrophysiology evaluation. Thank you for allowing me to see Robles Vu. If there are any questions, please do not hesitate to call. Edwin Woods, DO JOHNSONP/ , 08:05 PM , 08:26 PM
[2017-11-10] MEDS: ZOLPIDEM TARTRATE 10 MG TAB PO PRN (23:44)
[2017-11-10] MEDS: QUEtiapine FUMARATE 100 MG TAB PO SCH (23:46)
[2017-11-10] MEDS: MIRTAZAPINE 15 MG TAB PO SCH (23:46)
[2017-11-11] VITALS (20 sets, daily range): BP systolic 125–149; BP diastolic 79–83; PULSE 50–65; RESP 16–20; TEMP 97.3–98; O2SAT 95–99
[2017-11-11] MEDS: SODIUM CHLOR 0.9% 1000 ML INJ 1,000 ML IV SCH (02:25)
[2017-11-11 06:27] LABS: AUTOMATED NEUTROPHIL # 3.5 TH/MM3 (1.8-7.7); BASOPHIL # 0.1 TH/MM3 (0-0.2); BASOPHIL % 0.9 % (0.0-2.0); EOSINOPHIL # 0.4 TH/MM3 (0-0.4); EOSINOPHIL % 6.4 % (0.0-4.0); HEMATOCRIT 46.7 % (39.0-51.0); HEMOGLOBIN 15.7 GM/DL (13.0-17.0); LYMPH % 33.9 % (9.0-44.0); LYMPHOCYTE # 2.4 TH/MM3 (1.0-4.8); MEAN CELL VOLUME 95.1 FL (80.0-100.0); MEAN CORPUSCULAR HGB CONC 33.6 % (32.0-36.0); MEAN PLATELET VOLUME 9.8 FL (7.0-11.0); MONO % 9.7 % (0.0-8.0); MONOCYTE # 0.7 TH/MM3 (0-0.9); NEUT % 49.1 % (16.0-70.0); PLATELET COUNT 141 TH/MM3 (150-450); RED BLOOD COUNT 4.91 MIL/MM3 (4.50-5.90); RED CELL DISTRIBUTION WIDTH 13.3 % (11.6-17.2); WHITE BLOOD COUNT 7.1 TH/MM3 (4.0-11.0)
[2017-11-11 06:52] LABS: BICARBONATE 28.2 MEQ/L (21.0-32.0); CALCIUM 8.4 MG/DL (8.5-10.1); CREATININE 0.96 MG/DL (0.60-1.30)
--- NOTE | 2017-11-11 09:41 | MA ---
cc: Edwin Woods DO DATE: 11/10/2017 PROCEDURE: Left heart catheterization, coronary angiogram, moderate sedation 20 minutes. PREPROCEDURE DIAGNOSES: Nonsustained ventricular tachycardia on loop recorder, elevated troponin. POSTPROCEDURE DIAGNOSES: Mild coronary artery disease, nonsustained ventricular tachycardia. MEDICATIONS: Versed 1 mg, fentanyl 50 mcg, verapamil 2.5 mg, nitroglycerin 200 mcg, heparin 3200 units. CONTRAST USED: 45 mL FLUOROSCOPY: 2.3 minutes. MODERATE SEDATION: 20 minutes. FRAILTY SCORE: 1. ESTIMATED BLOOD LOSS: 10 mL PROCEDURAL SUMMARY: Robles Vu is a pleasant 67-year-old male who sees my partner, Dr. Means in the office, who was noted to have nonsustained ventricular tachycardia on his loop recorder and referred to the emergency room. He was recommended cardiac catheterization to rule out a possible ischemic cause. Risks, benefits and alternatives were explained to him and he consented as such. He was brought to the lab and prepped in the usual sterile fashion. The right radial artery was accessed using a modified Seldinger technique and placement of a 5/6 M[place]ese Slender sheath. This was easily aspirated and flushed. A JR4 was advanced over a J-wire to the ascending aorta and across the aortic valve for measurement of left ventricular pressure. This was pulled back across the aortic valve showing no significant gradient of aortic stenosis. JR4 was used for selective angiography of the right coronary artery system. This was exchanged out for a JL3.5, which was used for selective angiography of the left coronary artery system. JL3.5 was removed over a J wire. A radial band was placed over the arteriotomy site for hemostasis. The patient left the labor and delivery registered nurse cardiovascularly stable. FINDINGS: LEFT MAIN: Normal size vessel with adequate reflux. No significant disease. It bifurcates into an LAD and circumflex. LEFT ANTERIOR DESCENDING: Normal sized vessel with 30% disease throughout the proximal portion. After this, there are mild luminal irregularities. It gives off 1 major diagonal with no significant disease. LEFT CIRCUMFLEX: Moderate size vessel with mild luminal irregularities throughout. It has one high obtuse marginal. It gives off 1 major diagonal with an upper and lower branch and no significant disease. LEFT : Normal size vessel with mild luminal irregularities throughout. It gives off 2 obtuse marginals with no significant disease. RIGHT CORONARY ARTERY: Large vessel, dominant in nature. It gives off a PDA and a PLB, which have mild tortuosity throughout but no significant disease. LEFT VENTRICULAR END DIASTOLIC PRESSURE: 3. IMPRESSION: 1. Nonsustained ventricular tachycardia on loop recorder. 2. Minimally elevated troponin. RECOMMENDATIONS: 1. Mr. Vu underwent cardiac catheterization and was found to have mild coronary artery disease and recommended continued medical therapy. 2. He will be seen by Dr. Ovalles for consideration of EP study in the morning. Thank you for allowing me to see Robles Vu. If there are any questions, please do not hesitate to call. Edwin Woods, VGP/rt , 08:58 PM , 09:18 PM
[2017-11-11] MEDS: ATORVASTATIN 40 MG TAB PO SCH (09:54)
[2017-11-11] MEDS: DOCUSATE SODIUM 50 MG/SENNA 8.6 MG TAB PO SCH ×2 (09:54→21:00)
[2017-11-11] MEDS: PANTOPRAZOLE SOD 40 MG DELAYED RELEASE TAB PO SCH (09:54)
[2017-11-11] MEDS: SODIUM CHLORIDE 0.9% FLUSH 10 ML FLUSH IV FLUSH SCH ×2 (09:55→21:00)
[2017-11-11] MEDS ORDERED: ePHEDrine/NS 25 MG/5 ML SYRINGE IV ONE (12:00)
[2017-11-11] MEDS ORDERED: PROPOFOL 200 MG/20 ML AMP IV ONE (12:00)
[2017-11-11] MEDS: ASPIRIN 81 MG CHEW TAB CHEW SCH (12:57)
--- NOTE | 2017-11-11 13:43 | PD.CARD.PN ---
Subjective Subjective Remarks No events overnight Objective Medications Current Medications Medications (Trade) Dose Ordered Sig/David Route Start Time Stop Time Status Last Admin (NS Flush) 2 ml UNSCH PRN IV FLUSH 11/09/17 20:30 (NS Flush) 2 ml BID IV FLUSH 11/09/17 21:00 11/11/17 09:55 (Tylenol) 650 mg Q4H PRN PO 11/09/17 20:30 (Zofran Inj) 4 mg Q6H PRN IVP 11/09/17 20:30 (Narcan Inj) 0.4 mg UNSCH PRN IV PUSH 11/09/17 20:30 (Lucy-Colace) 1 tab BID PO 11/09/17 21:00 11/11/17 09:54 (Milk Of Magnesia Liq) 30 ml Q12H PRN PO 11/09/17 20:30 (Senokot) 17.2 mg Q12H PRN PO 11/09/17 20:30 (Dulcolax Supp) 10 mg DAILY PRN RECTAL 11/09/17 20:30 (Lactulose Liq) 30 ml DAILY PRN PO 11/09/17 20:30 (Roxicodone) 10 mg DAILY PRN PO 11/09/17 20:30 (Ambien) 10 mg HS PRN PO 11/09/17 21:45 11/10/17 23:44 (Remeron) 45 mg HS PO 11/09/17 21:00 11/10/17 23:46 (Protonix) 40 mg DAILY PO 11/10/17 09:00 11/11/17 09:54 (SEROquel) 100 mg HS PO 11/09/17 21:00 11/10/17 23:46 (Lipitor) 40 mg DAILY PO 11/10/17 09:00 11/11/17 09:54 (Aspirin Chew) 81 mg DAILY CHEW 11/11/17 09:00 11/11/17 12:57 (Tylenol) 500 mg Q4H PRN PO 11/10/17 19:45 Vital Signs / I&O Vital Signs Date Time Temp Pulse Resp B/P (MAP) Pulse Ox O2 Delivery O2 Flow Rate FiO2 11/11/17 11:00 97.6 65 18 141/83 (102) 95 11/11/17 07:45 98.0 60 17 148/80 (102) 96 11/11/17 02:00 56 11/11/17 00:00 60 16 149/82 (104) 96 11/11/17 00:00 50 11/11/17 00:00 52 11/11/17 00:00 50 16 11/10/17 23:00 50 11/10/17 22:00 64 11/10/17 21:00 58 11/10/17 20:00 68 11/10/17 20:00 64 11/10/17 20:00 97.8 59 16 133/71 (91) 97 11/10/17 19:00 58 11/10/17 18:00 58 11/10/17 17:00 62 11/10/17 16:27 61 18 137/87 (104) 97 11/10/17 16:10 58 11/10/17 16:00 61 18 137/87 (104) 97 I/O 11/10/17 11/10/17 11/10/17 11/11/17 11/11/17 11/11/17 07:00 15:00 23:00 07:00 15:00 23:00 Intake Total 240 ml 240 ml 600 ml Output Total 825 ml Balance 240 ml -585 ml 600 ml Intake Oral 240 ml 240 ml IV Total 600 ml Output Urine Total 825 ml # Voids 1 # Bowel Movements 1 Physical Exam GENERAL: NAD, AAOx3 SKIN: Warm and dry. HEAD: Atraumatic. Normocephalic. EYES: Pupils equal and round. No scleral icterus. No injection or drainage. ENT: No nasal bleeding or discharge. Mucous membranes pink and moist. NECK: Trachea midline. No JVD. CARDIOVASCULAR: Regular rate and rhythm. RESPIRATORY: No accessory muscle use. Clear to auscultation. Breath sounds equal bilaterally. GASTROINTESTINAL: Abdomen soft, non-tender, nondistended. Hepatic and splenic margins not palpable. MUSCULOSKELETAL: Extremities without clubbing, cyanosis, or edema. No obvious deformities. Right radial no hematoma, neurovascular intact distally NEUROLOGICAL: Awake and alert. No obvious cranial nerve deficits. Motor grossly within normal limits. Five out of 5 muscle strength in the arms and legs. Normal speech. PSYCHIATRIC: Appropriate mood and affect; insight and judgment normal. Laboratory Laboratory Tests Test 11/11/17 05:53 White Blood Count 7.1 TH/MM3 Red Blood Count 4.91 MIL/MM3 Hemoglobin 15.7 GM/DL Hematocrit 46.7 % Mean Corpuscular Volume 95.1 FL Mean Corpuscular Hemoglobin 32.0 PG Mean Corpuscular Hemoglobin Concent 33.6 % Red Cell Distribution Width 13.3 % Platelet Count 141 TH/MM3 Mean Platelet Volume 9.8 FL Neutrophils (%) (Auto) 49.1 % Lymphocytes (%) (Auto) 33.9 % Monocytes (%) (Auto) 9.7 % Eosinophils (%) (Auto) 6.4 % Basophils (%) (Auto) 0.9 % Neutrophils # (Auto) 3.5 TH/MM3 Lymphocytes # (Auto) 2.4 TH/MM3 Monocytes # (Auto) 0.7 TH/MM3 Eosinophils # (Auto) 0.4 TH/MM3 Basophils # (Auto) 0.1 TH/MM3 CBC Comment DIFF FINAL Differential Comment Blood Urea Nitrogen 20 MG/DL Creatinine 0.96 MG/DL Random Glucose 90 MG/DL Calcium Level 8.4 MG/DL Sodium Level 140 MEQ/L Potassium Level 4.1 MEQ/L Chloride Level 106 MEQ/L Carbon Dioxide Level 28.2 MEQ/L Anion Gap 6 MEQ/L Estimat Glomerular Filtration Rate 78 ML/MIN Assessment and Plan Problem List: (1) Elevated troponin level ICD Codes: R74.8 - Abnormal levels of other serum enzymes Status: Acute (2) Cardiac arrhythmia ICD Codes: I49.9 - Cardiac arrhythmia, unspecified Status: Acute Assessment and Plan 1) Cath showing mild CAD Con't medical management 2) Possible NSVT on loop recorder EP study today Consideration of low dose BB 3) Will defer further management to Dr. Ovalles Will see PRN, call with questions Problem Qualifiers (1) Cardiac arrhythmia: Qualified Codes: I47.2 - Ventricular tachycardia Edwin Woods DO Nov 11, 2017 13:43
--- NOTE | 2017-11-11 18:25 | HHI.DS ---
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 Patient has had a loop recorder for approximately 3 months secondary to intermittent dizzy spells. On Tuesday the loop recorder reported ventricular tachycardia in the patient's group fitness assistant department head, Dr. Mora, sent the patient for further evaluation. The patient reports sexual activity during the time that the loop recorder registered V. tach. He denies any chest pain/shortness of breath. No abdominal pain. No nausea/vomiting/diarrhea. No recent dizzy spells. No fatigue. No fevers/chills. CBC/BMP: 11/11/17 0553 11/11/17 0553 Significant Findings Laboratory Tests Test 11/09/17 16:22 11/09/17 22:23 11/10/17 05:13 11/11/17 05:53 Platelet Count 148 TH/MM3 (150-450) 145 TH/MM3 (150-450) 141 TH/MM3 (150-450) Monocytes (%) (Auto) 9.7 % (0.0-8.0) 10.2 % (0.0-8.0) 9.7 % (0.0-8.0) Eosinophils (%) (Auto) 5.7 % (0.0-4.0) 7.3 % (0.0-4.0) 6.4 % (0.0-4.0) Eosinophils # (Auto) 0.5 TH/MM3 (0-0.4) 0.5 TH/MM3 (0-0.4) Blood Urea Nitrogen 22 MG/DL (7-18) 20 MG/DL (7-18) 20 MG/DL (7-18) Estimat Glomerular Filtration Rate 67 ML/MIN (>89) 66 ML/MIN (>89) 78 ML/MIN (>89) Creatine Kinase MB 5.8 NG/ML (0.5-3.6) Troponin I 0.14 NG/ML (0.02-0.05) 0.15 NG/ML (0.02-0.05) 0.15 NG/ML (0.02-0.05) Calcium Level 8.3 MG/DL (8.5-10.1) 8.4 MG/DL (8.5-10.1) PE at Discharge GENERAL: male sitting up in bed CARDIOVASCULAR: Regular rate and rhythm without murmurs, gallops, or rubs. RESPIRATORY: Clear to auscultation. Breath sounds equal bilaterally. No wheezes , rales, or rhonchi. GASTROINTESTINAL: Abdomen soft, non-tender, nondistended. No hepato-splenomegaly , or palpable masses. No guarding. MUSCULOSKELETAL: Extremities without clubbing, cyanosis, or edema. No joint tenderness, effusion, or edema noted. No calf tenderness. NEUROLOGICAL: Awake and alert. Cranial nerves II through XII intact. Motor and sensory grossly within normal limits. Normal speech. Hospital Course 67-year-old male in good health, he cycles 100 miles per week. He had an asymptomatic run of 20 beats of ventricular tachycardia approximately 1 week ago when he was on vacation in [place] with his . The timing of this and his memory seems consistent with a space in time when he was having sex. He has been symptom-free since then but was suggested to visit our ER for further workup. ER lab work showed elevated troponin level and he was taken for heart catheterization to rule out any coronary arteries blockages. His coronary arteries were clean. He is currently in the [facility] undergoing electrophysiological study of the heart under Dr. Park. The study is expected to be normal so I have been requested to prepare his discharge in advance. If the study is abnormal he will be held overnight for further workup. He is instructed to follow-up with his group fitness assistant department head and with Dr. Park in the following weeks. No new medications were added to his regiment. Pt Condition on Discharge: Good Discharge Disposition: Discharge Home Discharge Time: <= 30 minutes Discharge Instructions DIET: Follow Instructions for: As Tolerated, No Restrictions Activities you can perform: Regular-No Restrictions Michael Knox MD Nov 11, 2017 18:25
--- NOTE | 2017-11-11 19:59 | MB ---
cc: Rio Ovalles MD,Rio Knox,Michael Means,Lusi F Deal MD DATE: 11/10/2017 HISTORY OF PRESENT ILLNESS: Mr. Vu is a 67-year-old gentleman man with history of syncopal episode, depression, insomnia, hyperlipidemia. He is an avid bicycle rider. The gentleman rode at least 200 miles a week before getting sick. A couple of months ago while riding bicycle, he felt dizzy and was close to losing consciousness. The episode happened multiple times thereafter. He was seen by Dr. Means. A loop recorder was recommended. Subsequently, an episode of wide complex tachyarrhythmia was observed. The patient was admitted. He had a left heart catheterization. The patient was admitted. Left heart catheterization was performed by Dr. Woods that indicated no occlusion. Normal ejection fraction. I was consulted for evaluation and management. The chart was reviewed. The patient was evaluated. ALLERGIES: REGLAN. SOCIAL HISTORY: Negative for smoking and drinking. FAMILY HISTORY: Noncontributory to his current medical condition. MEDICATIONS: 1. Crestor 20 mg a day. 2. Aspirin 81 mg a day. 3. Oxycodone 4. Tramadol. 5. Remeron, 6. Seroquel, 7. Xanax, 8. Ambien 9. Omeprazole. 10. Testosterone 100 mg every 2 weeks. REVIEW OF SYSTEMS: Currently, the patient referred no chest pain, no chest discomfort. No fever. PHYSICAL EXAMINATION: GENERAL: Alert, fully oriented. VITAL SIGNS: Blood pressure on evaluation was 137/87, pulse 61, respiratory rate 18. LUNGS: Ventilated. CARDIOVASCULAR: S1, S2 regular. No gallop. ABDOMEN: Soft. No mass, no bruit. EXTREMITIES: No edema. CARDIOLOGY STUDIES: Electrocardiogram indicates sinus rhythm, no acute ST and T-wave changes. LABORATORY DATA: Hemoglobin 15.4, white blood cell 6.9. Potassium 4.1, creatinine 0.96. INR 1.1. ASSESSMENT AND RECOMMENDATION: I had a long conversation with Mr. Vu. He has some wide complex tachyarrhythmia. There is episode of syncope. He has a normal ejection fraction. There is no ischemia. I discussed this with him and Dr. Woods the option of observation versus electrophysiology study. The risks and the benefit of both option were discussed with them. I discussed again the case with the patient and his . There were 2 positive electrophysiology studies. Procedure will be performed during hospitalization. If no arrhythmia induced, the gentleman can be discharged home and continue observation. This gentleman advised not to drive and not to ride his bicycle for at least the next 3 months. MD HORTENCIA Campos/ , 07:19 PM , 07:58 PM
[2017-11-11] MEDS ORDERED: LIDOCAINE HCL 1% PF 30 ML VIAL ONE (20:00)
[2017-11-11] MEDS ORDERED: ISOPROTERENOL HCL 0.2 MG/ML AMP IV ONE (20:05)
[2017-11-11] MEDS ORDERED: oxyCODONE/ACETAMINOPHEN 5 MG/325 MG TAB PO PRN ×2 (20:45)
[2017-11-11] MEDS ORDERED: ONDANSETRON HCL 4 MG/2 ML VIAL IV PUSH PRN (20:45)
[2017-11-11] MEDS ORDERED: LIDOCAINE HCL 1% 50 ML VIAL INFIL PRN (20:45)
[2017-11-11] MEDS ORDERED: ATROPINE SULFATE 1 MG/ML VIAL IV PUSH PRN (20:45)
[2017-11-11] MEDS ORDERED: LORazepam 2 MG/ML VIAL IV PUSH PRN (20:45)
[2017-11-11] MEDS ORDERED: SODIUM CHLOR 0.9% 250 ML INJ 250 ML IV PRN (20:45)
[2017-11-11] MEDS ORDERED: BACITRACIN OINT 0.9 GM PKT TOP ONE (20:45)
--- NOTE | 2017-11-11 20:47 | CATHPROC ---
Patient Name: MAURIZIO ALARCON Study #: [id number] Initial MD: Rio Ovalles Date of : 1950 Study Date: 11/11/2017 Cardiac Catheterization Report 11/11/2017 8:47:00 PM Financial #: [id number] 1 of 7 Patient Name: MAURIZIO ALARCON Study #: [id number] Initial MD: Rio Ovalles Date of : 1950 Study Date: 11/11/2017 Entire Case Report Patient Information Patient Name MAURIZIO ALARCON Date of 1950 Age 67 years Financial # [id number] Gender M AlternateID Lab Number 2 Room Number 246 Height (in) 70.0 Height (cm) 177.8 BSA 1.94 Weight (lbs) 167.4 Weight (kg) 76.1 Patient Address/Phone Number Home Address [facility] Home Phone Number [facility] [id number] Study Information Study Number Admission Scheduled Start Study Start [id number] Nov 09 2017 6:34PM 11/11/2017 Nov 11 2017 7:27PM Standard Service Electrophysiology Study Admit Source Facility Department Other [facility] - Patch Finisher Physician and Clinical Staff Initial Rio Brown Online Publisher Frannie Carrillo RCIS Other Anesthesia, [employer] Recorder Ana Laura Bhakta,Meet Starr,RT(R) 11/11/2017 8:47:00 PM Financial #: [id number] 2 of 7 Patient Name: MAURIZIO ALARCON Study #: [id number] Initial MD: Rio Ovalles Date of : 1950 Study Date: 11/11/2017 Equipment Time Manager Continuous Improvement Description Size Mfg Part Number Used/Scraped [id number] 19:30 [employer] PACK, CCL CUSTOM * Used *[id number] 19:30 DragonWave PACER SMITH, LIMB * 2530 *[id number] Used [id number] 19:30 [employer],WARM AIR CCL * Used *[id number] 20:04 [employer] MEDICAL CATHETER, JSN, QUAD FR 5 Used *[id number] 20:04 [employer] MEDICAL CATHETER, JSN, QUAD FR 5 Used *[id number] 20:04 [employer] MEDICAL CATHETER, JSN, QUAD FR 5 Used *[id number] 20:04 [employer] MEDICAL CATHETER, JSN, QUAD FR 5 Used *[id number] 20:04 [employer] MEDICAL SHEATH, EPS, FR5 FAST CATH FR 5 Used *[id number] 137946 20:04 [employer] MEDICAL SHEATH, EPS, FR5 FAST CATH FR 5 Used *[id number] 20:04 [employer] MEDICAL SHEATH, EPS, FR5 FAST CATH FR 5 Used *[id number] 20:04 [employer] MEDICAL SHEATH, EPS, FR6 FAST CATH FR 6 Used *[id number] Insurance Information Insurance Payor Medicare Third Libertarian Third Libertarian Number MEDICARE A B MCRAB History: Allergies Allergy Reaction metoclopramide History: Risk Factors Dyslipidemia Yes Labs Hgb (g/dl) Hct (%) RBC (MIL/MM3) WBC (l/cumm) Platelets (thousands) 11.60-17.00 35.00-51.00 4.00-5.90 4.00-11.00 150.00-450.00 15.0 46 4.9 7.1 141 Glucose (mg/dl) BUN (mg/dl) Creatinine (mg/dl) BUN:Creatinine (1:x) 74.00-106.00 7.00-18.00 0.50-1.30 10.00-20.00 90 20 0.9 22.2 11/11/2017 8:47:00 PM Financial #: [id number] 3 of 7 Patient Name: MAURIZIO ALARCON Study #: [id number] Initial MD: Rio Ovalles Date of : 1950 Study Date: 11/11/2017 Na (meq/l) K (meq/l) 136.00-145.00 3.50-5.10 140 4.1 INR (PTT:PT) 0.90-1.10 1.1 Medication Medication Total Dose (Bolus/Oral) Medication Total Dosage/Unit 1% XYLOCAINE 20 mL Medications (Bolus/Oral) Medication Time Given Dosage/Unit Administered By Reason 1% XYLOCAINE 11/11/2017 8:07:58 PM 20 mL Rio Ovalles 20 mL 1% XYLOCAINE given in lab by Rio Ovalles in Right Groin via Subcutaneous. Medication (Drip) Medication Time Given Dosage/Unit Concentration/Unit Diluent (ml) Solution ISUPREL 11/11/2017 8:23:31 PM 5 mcg/min 1 mg 250 NaCl .9 5 mcg/min ISUPREL given in lab by Anesthesia, FISHER GILL NET via Peripheral IV. Pump/Drip Flow = 75 ml/hr using NaCl .9 with a concentration of 1 mg in 250 ml. Ordered by Rio Ovalles. Reason: As per physicians verbal order. 11/11/2017 8:47:00 PM Financial #: [id number] 4 of 7 Patient Name: MAURIZIO ALARCON Study #: [id number] Initial MD: Rio Ovalles Date of : 1950 Study Date: 11/11/2017 Final Case Assessment Cardiovascular HR Rhythm NIBP Chest Pain 79 sr 144/85 0 Edema Present Skin color Skin None Normal Warm Dry Circulatory - Right Pulses Dorsalis Pedis 1 Scale (0,1,2,3,4,d) Circulatory - Left Pulses Dorsalis Pedis 1 Scale (0,1,2,3,4,d) Circulatory - Lower Extremities Color Lower Right Color Lower Left Normal Normal Neurological State Oriented to time-place- Lethargic Moves all extremities person Respiration - General Respiration Rate SpO2 (%) (B/min) 16 100 Chronological Log Time Study Chronological Log 19:45:30 Patient Name, D.O.B, / Armband Verified By R.N. 19:45:51 Patient arrived via Bed. 19:45:57 Consent signed by the physician and the patient and verified by the Patch Finisher staff. 19:46:00 Pre-op and post- op instructions given; patient acknowledges understanding of instructions. 19:46:05 Verbal Stimulation=2 Physical Stimulation=2 Airway=2 Respiration=2 TOTAL=8. (0=absent, 1=li mited, 2=present) 19:47:09 Anesthesia at bedside. Assumes care of patient. 19:47:36 MD arrived. 19:48:13 Patient has been NPO for More than 6Hrs. 19:48:15 Skin Breakdown- none per pt 11/11/2017 8:47:00 PM Financial #: [id number] 5 of 7 Patient Name: MAURIZIO ALARCON Study #: [id number] Initial MD: Rio Ovalles Date of : 1950 Study Date: 11/11/2017 19:48:15 Patient Warmer Placed on the Table. 19:48:16 Disposable Defibrillator Pads Placed On Patient. 19:48:17 Giorgi Prominences Protected 19:48:19 A # 20 IV was noted in the Antecubital (left). Grade = 0 0.9ns kvo 19:48:19 A # 20 IV was noted in the Antecubital (right). Grade = 0 0.9ns kvo 19:48:20 History and physical on the chart or being dictated. 20:00:00 Bilateral groins prepped with 2% chlorhexidine, and draped after a 3 minute waiting time. 20:01:45 Table restraints applied according to hospital policy Time Out. Correct patient, procedure, procedure equipment, site and side verified with physicia n present. Time 20:07:08 concurred by MD, individual staff and [employer] G[employer] NET. Time Out #2 - Consents verified, patient in correct position, all results are labled and displa yed, safety precautions 20:07:29 taken, antibiotics administered. Time out concurred by MD, individual staff and FISHER GILL NET in procedu re 20:07:40 Case Start 20:07:58 20 mL 1% XYLOCAINE given in lab by Rio Ovalles in Right Groin via Subcutaneous. 20:08:05 Vascular access was obtained in the Fem Vein (right). 20:08:18 Vascular access was obtained in the Fem Vein (right). 20:08:29 Vascular access was obtained in the Fem Vein (right). 20:08:31 Reference ECG taken 20:08:41 Vascular access was obtained in the Fem Vein (right). 20:09:10 A SHEATH, EPS, FR5 FAST CATH FR 5 was advanced into the Fem Vein (right) using the Percutan eous technique. 20:09:22 A SHEATH, EPS, FR5 FAST CATH FR 5 was advanced into the Fem Vein (right) using the Percutan eous technique. 20:09:27 A SHEATH, EPS, FR5 FAST CATH FR 5 was advanced into the Fem Vein (right) using the Percutan eous technique. 20:09:31 A SHEATH, EPS, FR6 FAST CATH FR 6 was advanced into the Fem Vein (right) using the Percutan eous technique. A CATHETER, JSN, QUAD FR 5 was advanced vis Fem Vein (right) and placed in the CS. Placement wa s visually 20:10:57 confirmed under fluoroscopy. A CATHETER, JSN, QUAD FR 5 was advanced vis Fem Vein (right) and placed in the HIS. Placement w as visually 20:12:07 confirmed under fluoroscopy. A CATHETER, JSN, QUAD FR 5 was advanced vis Fem Vein (right) and placed in the RVA. Placement w as visually 20:13:13 confirmed under fluoroscopy. A CATHETER, JSN, QUAD FR 5 was advanced vis Fem Vein (right) and placed in the HRA. Placement w as visually 20:15:17 confirmed under fluoroscopy. 20:16:22 EPS in progress 5 mcg/min ISUPREL given in lab by Anesthesia, FISHER GILL NET via Peripheral IV. Pump/Drip Flow = 75 ml/hr using NaCl .9 with 20:23:31 a concentration of 1 mg in 250 ml. Ordered by Rio Ovalles. Reason: As per physicians verbal o rder. 20:31:23 Isuprel off 20:31:34 PACU called. Spoke to Rivas 20:31:41 Bedside Report will be given. 20:32:09 EPS complete. Catheter(s) removed without difficulty 20:33:39 Sheaths removed; pressure applied to access site by DC. 20:40:19 Pt extubated. 20:40:31 Defibrillator and ground pads removed. Skin intact. 11/11/2017 8:47:00 PM Financial #: [id number] 6 of 7 Patient Name: MAURIZIO ALARCON Study #: [id number] Initial MD: Rio Ovalles Date of : 1950 Study Date: 11/11/2017 20:40:38 Case End 20:40:39 No case complications noted. 20:40:41 Cine recording checked. Assessment: Final Case, HR=79 BPM, Rhythm=sr, LBIX=256/85 mmhg, Chest Pain=0, Edema=None, [place] r=Normal, Skin = Warm, Dry Right Pulses: Luis Felipe Ped=1 Left Pulses: Luis Felipe Ped=1 20:43:45 Lower Right Extremities: Color=Normal Lower Left Extremities: Color=Normal Neurological: State=Lethargic, Ox3, EDOUARD Respiration: Resp=16 B/min, CxW9=773 % 20:46:36 Sterile dressing applied to site. Site wnl. 20:49:47 Patient moved to stretcher End Study - Contrast Media Used In Study Contrast Total Opened (mL) Total Used (mL) Total Wasted (mL) Unspecified 0 0 0 End Study - Maximum Contrast Load Max Contrast Load (mL) 422.7 End Study - Radiation Exposure Fluoro Time (minutes) 0.7 End Study - Sheaths Sheaths Pulled By Sheath Hold Time (min) Frannie Carrillo End Study - Patient Disposition Complications Transferred To Interventional Outcome No Telemetry Bed successful 11/11/2017 8:47:00 PM Financial #: [id number]
[2017-11-11] MEDS ORDERED: DO NOT ADM ANY ANTICOAGULANT DRUGS PRN (20:55)
[2017-11-11] MEDS: QUEtiapine FUMARATE 100 MG TAB PO SCH (22:04)
[2017-11-11] MEDS: MIRTAZAPINE 15 MG TAB PO SCH (22:05)
[2017-11-11] MEDS: ZOLPIDEM TARTRATE 10 MG TAB PO PRN (22:07)
[2017-11-12] VITALS (11 sets, daily range): BP systolic 117–143; BP diastolic 63–78; PULSE 52–70; RESP 16–20; TEMP 97.6–98.4; O2SAT 96–97
[2017-11-12] MEDS: SODIUM CHLORIDE 0.9% FLUSH 10 ML FLUSH IV FLUSH SCH (09:00)
[2017-11-12] MEDS: ASPIRIN 81 MG CHEW TAB CHEW SCH (10:10)
[2017-11-12] MEDS: PANTOPRAZOLE SOD 40 MG DELAYED RELEASE TAB PO SCH (10:10)
[2017-11-12] MEDS: ATORVASTATIN 40 MG TAB PO SCH (10:11)
[2017-11-12] MEDS: DOCUSATE SODIUM 50 MG/SENNA 8.6 MG TAB PO SCH (10:11)
--- NOTE | 2017-11-12 18:55 | EKG ---
Date Performed: 11/11/2017 Time Performed: 21:19:20 PTAGE: 67 years EKG: SINUS BRADYCARDIA WITH FIRST DEGREE AV BLOCK MARKED LEFT AXIS DEVIATION NONSPECIFIC ST ELEV ATION POOR R WAVE PROGRESSION MORE PROMINENT FROM THE PRIOR TRACING BUT MOST LIKELY DUE TO LEAD PLACE MENT ABNORMAL ECG PREVIOUS TRACING : 11/10/2017 05.44 DOCTOR: David Esqueda Interpretating Date/Time 11/12/2017 18:55:24
--- NOTE | 2017-11-12 18:56 | EKG ---
Date Performed: 11/12/2017 Time Performed: 06:00:34 PTAGE: 67 years EKG: Sinus bradycardia with sinus arrhythmia with 1st degree A-V block Possible left anterior fa scicular block Possible anterior infarct - age undetermined Inferior T wave changes are nonspecific S jessica the previous tracing, no significant change noted Abnormal ECG PREVIOUS TRACING : 11/11/2017 21.19 DOCTOR: David Esqueda Interpretating Date/Time 11/12/2017 18:55:36
--- NOTE | 2017-11-14 01:19 | MA ---
cc: Rio Ovalles MD DATE: 11/11/2017 PROCEDURE PERFORMED: Electrophysiology study, CS cannulation, repeat electrophysiology study on Isuprel infusion. INDICATIONS: Possible ventricular tachycardia and syncope. Mr. Vu is a 67-year-old gentleman, very active, rides around 200 miles a week, who was having episodes of syncope for the past 3 months. A loop recorder was inserted, a wide complex tachyarrhythmia observed, possible ventricular tachycardia. Left heart catheterization done by Dr. Woods indicated no occlusion, and patient was referred for electrophysiology study. The risks, the nature, and the benefits of the procedure are clearly stated to him and his . Risks include pneumothorax, cardiac perforation, stroke and even . The patient understands and agreed to proceed. PROCEDURE: After written informed consent was obtained, the patient was brought to the EP lab, where he was prepped and draped in the usual sterile fashion. Conscious sedation was initiated and maintained throughout the procedure by the anesthesiologist. Once sedation was verified, the right inguinal area was anesthetized with 2% Xylocaine. Using modified Seldinger technique, the left femoral vein was cannulated on 4 occasions and 4 guidewires were advanced over the wire; 3, 5 and a 6-Citizen [place] Hemaquet were advanced. Then, under fluoroscopic guidance through the 5 and 6-[place]izen [place] Hemaquet, 4 and 5-[place]izen [place] Annmarie curved quadripolar electrophysiology catheters were advanced and positioned along the His, upper right atrium, coronary sinus and right ventricular apex. Basic intervals were measured. They were within normal limits. At this point, atrial pacing protocol was performed. Atrial pacing protocol consisted of incremental atrial pacing as well as programmed stimulation with 1 [address] cycle length and up to 1 extrastimuli delivered. No tachyarrhythmia was induced. Wenckebach of the AV node was high at around 490 milliseconds. Then vascular pacing protocol was performed. There was VA conduction. Ventricular pacing protocol consisted of incremental ventricular pacing as well as programmed stimulation with 1 [address] cycle length and up to 8 extrastimuli delivered. No tachyarrhythmia was induced. Then, Isuprel infusion was initiated. Ventricular pacing protocol was repeated. Again, no tachyarrhythmia was induced. Post-Isuprel, no tachyarrhythmia was induced. At that point, the procedure was complete. All catheters were removed. The patient is going to be transferred to the recovery room. No incident to report. The patient tolerated the procedure. Blood loss was minimal. 1. Electrocardiogram: At baseline, the patient was in sinus. Postprocedure electrocardiogram was unchanged. 2. Basic interval: Basic cycle length was around 900 milliseconds, AH was around 80, and HV was around 60 milliseconds. 3. Atrial pacing protocol: Wenckebach of the node was around 490 milliseconds. No tachyarrhythmia was induced. 4. Ventricular pacing protocol: There was VA conduction. No tachyarrhythmia was induced. CONCLUSION: Negative electrophysiology study for supraventricular tachyarrhythmia. COMMENT AND RECOMMENDATIONS: This gentleman has a good ejection fraction and is very active. This was a nonsustained episode. ____ associated with the syncopal episode. No need for further management. The patient can be observed. If necessary in the future, a beta payton may be considered. Case discussed with the patient and . MD HORTENCIA Campos/OJEY , 11:21 PM , 01:18 AM
== END 2017-11-12 10:21 | disposition home or self-care (01) | DRG 274 ==
LOC: NEPE 15:54 → NEDA 18:34 → NEDH 11-10 00:28 → HCIS 11-10 15:38
PROVIDERS: ADMIT Family Medicine; ATTEND Family Medicine
PROC: 4A023N7 Measurement of Cardiac Sampling and Pressure, Left Heart, Percutaneous Approach (ICD-10-PCS; 2017-11-10)
PROC: B2111ZZ Fluoroscopy of Multiple Coronary Arteries using Low Osmolar Contrast (ICD-10-PCS; 2017-11-10)
PROC: B2151ZZ Fluoroscopy of Left Heart using Low Osmolar Contrast (ICD-10-PCS; 2017-11-10)
PROC: 4A023FZ Measurement of Cardiac Rhythm, Percutaneous Approach (ICD-10-PCS; principal; 2017-11-11)
DX: I47.2 Ventricular tachycardia (principal); I10 Essential (primary) hypertension; F32.9 Major depressive disorder, single episode, unspecified; E78.5 Hyperlipidemia, unspecified; I44.0 Atrioventricular block, first degree; R74.8 Abnormal levels of other serum enzymes; R55 Syncope and collapse; R51 Headache; G47.00 Insomnia, unspecified; K21.9 Gastro-esophageal reflux disease without esophagitis; M54.5 Low back pain; G89.29 Other chronic pain; I25.10 Atherosclerotic heart disease of native coronary artery without angina pectoris; Z98.1 Arthrodesis status; Z79.82 Long term (current) use of aspirin
CPT/HCPCS: 71046; 80048; 80053; 82550; 82552; 83690; 83735; 83880; 84484; 85025; 85610; 85730; 93005; 93458; 93620; 93623; 99152; 99153; C1730; C1769; C1893; J1644; J2250; J3010; J7030; Q9967